=== PATIENT | female | born 1930 | race Caucasian/White ===

== ENCOUNTER → 2016-11-22 | Outpatient (CLI) | payer OTHER, MEDICARE ==
[~2016-11-22] MED LIST: ACETAMINOPHEN-1 EAC1 PO; ALPRAZOLAM 0.0.25 M1 PO; ANASPAZ0.125 MG PO; APAP500 PO; ASA5UEC PO; ASPIRIN81 M2 PO; BEANO1 EACH PO; BINOSTO70 MG PO; CALCIUM 600 +1 EAC1 PO; CELEBREX 200 M200 MG PO; CENTRUM SILVER1 EAC1 PO; CRESTOR10 MG PO; CYCLOBENZAPRINE10 MG PO; DITROPAN XL10 M1 PO; DITROPAN XL15 MG PO; FISH OIL 1,0001 EAC5 PO; HYDROCODON-ACE1 EAC7 PO; KEFLEX500 MG; MIRALAX255 GM PO; PREDNISOLONE 5 M5 M1 PO; TRAMADOL 50 MG50 MG PO; VITAMIN D31000 UNI2 PO; ZESTRIL10 MG PO; [UNRECOGNIZED DRUG - OTHER] PO
== END ==
LOC: RAD 01:15
DX: Z12.31 Encounter for screening mammogram for malignant neoplasm of breast (principal)

== ENCOUNTER → 2017-05-16 | Outpatient (CLI) | payer OTHER, MEDICARE | LOC: HYPER 05-03 10:37 | DX: S81.801A Unspecified open wound, right lower leg, initial encounter (principal); L03.115 Cellulitis of right lower limb; M19.90 Unspecified osteoarthritis, unspecified site; F41.9 Anxiety disorder, unspecified; M81.0 Age-related osteoporosis without current pathological fracture; Z72.89 Other problems related to lifestyle; X58.XXXA Exposure to other specified factors, initial encounter; Y93.89 Activity, other specified; Y92.89 Other specified places as the place of occurrence of the external cause; Y99.8 Other external cause status ==

== ENCOUNTER → 2017-05-28 | Outpatient (CLI) | payer OTHER, MEDICARE | LOC: HYPER 07:02 | DX: S81.801D Unspecified open wound, right lower leg, subsequent encounter (principal); L03.115 Cellulitis of right lower limb; M19.90 Unspecified osteoarthritis, unspecified site; M81.0 Age-related osteoporosis without current pathological fracture; F41.9 Anxiety disorder, unspecified; Z98.49 Cataract extraction status, unspecified eye; Z72.89 Other problems related to lifestyle; X58.XXXD Exposure to other specified factors, subsequent encounter ==

== ENCOUNTER → 2017-06-11 | Outpatient (CLI) | payer OTHER, MEDICARE | LOC: HYPER 06:49 | DX: S81.801D Unspecified open wound, right lower leg, subsequent encounter (principal); M19.90 Unspecified osteoarthritis, unspecified site; M81.0 Age-related osteoporosis without current pathological fracture; F41.9 Anxiety disorder, unspecified; Z98.49 Cataract extraction status, unspecified eye; Z79.82 Long term (current) use of aspirin; Z72.89 Other problems related to lifestyle; X58.XXXD Exposure to other specified factors, subsequent encounter ==

== ENCOUNTER → 2018-04-18 | Outpatient (CLI) | payer OTHER, MEDICARE | LOC: HYPER 07:18 | DX: S81.812A Laceration without foreign body, left lower leg, initial encounter (principal); M19.90 Unspecified osteoarthritis, unspecified site; M81.0 Age-related osteoporosis without current pathological fracture; F41.9 Anxiety disorder, unspecified; Z98.49 Cataract extraction status, unspecified eye; Z79.82 Long term (current) use of aspirin; W22.8XXA Striking against or struck by other objects, initial encounter; Y93.89 Activity, other specified; Y92.89 Other specified places as the place of occurrence of the external cause; Y99.8 Other external cause status ==

== ENCOUNTER → 2018-07-02 | Outpatient (CLI) | payer OTHER, MEDICARE | LOC: HYPER 06-13 10:17 | DX: S81.801A Unspecified open wound, right lower leg, initial encounter (principal); M19.90 Unspecified osteoarthritis, unspecified site; M81.0 Age-related osteoporosis without current pathological fracture; F41.9 Anxiety disorder, unspecified; W22.8XXA Striking against or struck by other objects, initial encounter; Y93.89 Activity, other specified; Y92.513 Shop (commercial) as the place of occurrence of the external cause; Y99.8 Other external cause status ==

== ENCOUNTER → 2018-10-08 | Outpatient (CLI) | payer OTHER, MEDICARE | LOC: HYPER 06:58 | DX: L97.822 Non-pressure chronic ulcer of other part of left lower leg with fat layer exposed (principal); R54 Age-related physical debility; R60.0 Localized edema; M19.90 Unspecified osteoarthritis, unspecified site; M81.0 Age-related osteoporosis without current pathological fracture; F41.9 Anxiety disorder, unspecified ==

== ENCOUNTER → 2018-11-05 | Outpatient (CLI) | payer OTHER, MEDICARE | LOC: HYPER 06:40 | DX: L97.811 Non-pressure chronic ulcer of other part of right lower leg limited to breakdown of skin (principal); M19.90 Unspecified osteoarthritis, unspecified site; M81.0 Age-related osteoporosis without current pathological fracture; R54 Age-related physical debility; R60.0 Localized edema; F41.9 Anxiety disorder, unspecified ==

== ENCOUNTER 2019-07-09 15:51 | Emergency (ER) | payer OTHER, MEDICARE ==
[~2019-07-09] VITALS: Ht 157.5 cm; Wt 52.6 kg
[2019-07-09 17:41] VITALS: BP 163/82
== END 2019-07-09 17:42 | disposition home or self-care (01) ==
LOC: ER 15:51
DX: S43.491A Other sprain of right shoulder joint, initial encounter (principal); G89.29 Other chronic pain; Z96.651 Presence of right artificial knee joint; Z88.1 Allergy status to other antibiotic agents; Z88.8 Allergy status to other drugs, medicaments and biological substances; W10.8XXA Fall (on) (from) other stairs and steps, initial encounter; Y93.89 Activity, other specified; Y92.89 Other specified places as the place of occurrence of the external cause; Y99.8 Other external cause status

== ENCOUNTER → 2019-07-31 | Outpatient (CLI) | payer OTHER, MEDICARE | LOC: HYPER 08:33 | DX: S81.811A Laceration without foreign body, right lower leg, initial encounter (principal); S81.812A Laceration without foreign body, left lower leg, initial encounter; L03.115 Cellulitis of right lower limb; R54 Age-related physical debility; M25.511 Pain in right shoulder; M25.512 Pain in left shoulder; M19.90 Unspecified osteoarthritis, unspecified site; M25.571 Pain in right ankle and joints of right foot; M81.0 Age-related osteoporosis without current pathological fracture; F41.9 Anxiety disorder, unspecified; Z79.82 Long term (current) use of aspirin; Z98.49 Cataract extraction status, unspecified eye; Z79.52 Long term (current) use of systemic steroids; X58.XXXA Exposure to other specified factors, initial encounter; Y93.89 Activity, other specified; Y92.89 Other specified places as the place of occurrence of the external cause; Y99.8 Other external cause status ==

== ENCOUNTER → 2019-08-07 | Outpatient (CLI) | payer OTHER, MEDICARE | LOC: HYPER 09:01 | DX: L97.811 Non-pressure chronic ulcer of other part of right lower leg limited to breakdown of skin (principal); S81.811D Laceration without foreign body, right lower leg, subsequent encounter; S81.812D Laceration without foreign body, left lower leg, subsequent encounter; L03.115 Cellulitis of right lower limb; R60.0 Localized edema; M25.511 Pain in right shoulder; M25.512 Pain in left shoulder; M25.571 Pain in right ankle and joints of right foot; M19.90 Unspecified osteoarthritis, unspecified site; M81.0 Age-related osteoporosis without current pathological fracture; F41.9 Anxiety disorder, unspecified; Z79.82 Long term (current) use of aspirin; Z79.52 Long term (current) use of systemic steroids; W22.8XXD Striking against or struck by other objects, subsequent encounter ==

== ENCOUNTER → 2019-08-21 | Outpatient (CLI) | payer OTHER, MEDICARE | LOC: HYPER 13:43 | DX: L97.811 Non-pressure chronic ulcer of other part of right lower leg limited to breakdown of skin (principal); S81.811D Laceration without foreign body, right lower leg, subsequent encounter; S81.812D Laceration without foreign body, left lower leg, subsequent encounter; L03.115 Cellulitis of right lower limb; R60.0 Localized edema; M25.511 Pain in right shoulder; M25.512 Pain in left shoulder; M25.571 Pain in right ankle and joints of right foot; M19.90 Unspecified osteoarthritis, unspecified site; M81.0 Age-related osteoporosis without current pathological fracture; F41.9 Anxiety disorder, unspecified; Z79.82 Long term (current) use of aspirin; Z79.52 Long term (current) use of systemic steroids; W22.8XXD Striking against or struck by other objects, subsequent encounter ==

== ENCOUNTER → 2019-09-04 | Outpatient (CLI) | payer OTHER, MEDICARE | LOC: HYPER 13:25 | DX: L97.811 Non-pressure chronic ulcer of other part of right lower leg limited to breakdown of skin (principal); S81.811D Laceration without foreign body, right lower leg, subsequent encounter; S81.812D Laceration without foreign body, left lower leg, subsequent encounter; L03.115 Cellulitis of right lower limb; R60.0 Localized edema; M25.511 Pain in right shoulder; M25.512 Pain in left shoulder; M25.571 Pain in right ankle and joints of right foot; M19.90 Unspecified osteoarthritis, unspecified site; M81.0 Age-related osteoporosis without current pathological fracture; F41.9 Anxiety disorder, unspecified; Z79.82 Long term (current) use of aspirin; Z79.52 Long term (current) use of systemic steroids; W22.8XXD Striking against or struck by other objects, subsequent encounter ==

== ENCOUNTER → 2019-09-18 | Outpatient (CLI) | payer OTHER, MEDICARE | LOC: HYPER 10:53 | DX: S81.812D Laceration without foreign body, left lower leg, subsequent encounter (principal); S81.811D Laceration without foreign body, right lower leg, subsequent encounter; L97.811 Non-pressure chronic ulcer of other part of right lower leg limited to breakdown of skin; L03.115 Cellulitis of right lower limb; R60.0 Localized edema; M25.511 Pain in right shoulder; M25.512 Pain in left shoulder; M25.571 Pain in right ankle and joints of right foot; M19.90 Unspecified osteoarthritis, unspecified site; M81.0 Age-related osteoporosis without current pathological fracture; F41.9 Anxiety disorder, unspecified; Z79.82 Long term (current) use of aspirin; Z79.52 Long term (current) use of systemic steroids; W22.8XXD Striking against or struck by other objects, subsequent encounter ==

== ENCOUNTER 2019-11-13 18:04 | Emergency (ER) | payer OTHER, MEDICARE ==
[~2019-11-13] VITALS: Ht 165.1 cm; Wt 54.0 kg
[2019-11-13 19:45] LABS: ABSOLUTE NEUTROPHILS 8.4 thou/uL (1.4-8.2); BASOPHILS 0.5 % (0.0-2.0); EOSINOPHILS 0.1 % (0.0-3.0); HEMATOCRIT 37.9 % (37.0-47.0); HEMOGLOBIN 12.5 gm/dL (12.0-15.0); LYMPHOCYTES 20.4 % (24.0-44.0); MCH 30.9 pg (26.0-34.0); MCHC 33.1 g/dL (28.0-37.0); MCV 93.4 fL (80.0-100.0); MONOCYTES 7.7 % (1.0-8.0); PLATELET COUNT 164 thou/uL (150-400); POLYS 71.3 % (36.0-66.0); RBC 4.06 mil/uL (4.20-5.00); WBC 11.8 thou/uL (4.0-11.0)
[2019-11-13 19:52] LABS: CALCIUM 8.8 mg/dL (8.5-10.1); CREATININE 0.8 mg/dL (0.6-1.0); POTASSIUM 3.9 mmol/L (3.5-5.1)
[2019-11-13 20:00] LABS: ALBUMIN 2.7 g/dL (3.4-5.0); TOTAL BILIRUBIN 0.7 mg/dL (0.2-1.0); TOTAL PROTEIN 6.1 g/dL (6.4-8.2)
[2019-11-13] MEDS ORDERED: ELIQUIS5 M1 PO (20:16)
[2019-11-13 20:52] VITALS: BP 124/76
== END 2019-11-13 20:52 | disposition home or self-care (01) ==
LOC: ER 18:04
PROVIDERS: Emergency Medicine
DX: I82.402 Acute embolism and thrombosis of unspecified deep veins of left lower extremity (principal); Z86.718 Personal history of other venous thrombosis and embolism; Z96.651 Presence of right artificial knee joint; Z79.899 Other long term (current) drug therapy; Z79.82 Long term (current) use of aspirin; Z88.8 Allergy status to other drugs, medicaments and biological substances; Z88.1 Allergy status to other antibiotic agents; Z88.2 Allergy status to sulfonamides

== ENCOUNTER → 2019-12-01 | Outpatient (CLI) | payer OTHER, MEDICARE ==
[~2019-12-01] MED LIST changes: +ELIQUIS5 M1 PO
== END ==
LOC: HYPER 15:04
PROVIDERS: ATTEND Emergency Medicine
DX: L97.822 Non-pressure chronic ulcer of other part of left lower leg with fat layer exposed (principal); S80.822A Blister (nonthermal), left lower leg, initial encounter; I82.502 Chronic embolism and thrombosis of unspecified deep veins of left lower extremity; R54 Age-related physical debility; M19.90 Unspecified osteoarthritis, unspecified site; M81.0 Age-related osteoporosis without current pathological fracture; F41.9 Anxiety disorder, unspecified; Z79.82 Long term (current) use of aspirin; Z79.01 Long term (current) use of anticoagulants; Z79.52 Long term (current) use of systemic steroids; Z98.49 Cataract extraction status, unspecified eye; X58.XXXA Exposure to other specified factors, initial encounter; Y93.89 Activity, other specified; Y92.89 Other specified places as the place of occurrence of the external cause; Y99.8 Other external cause status

== ENCOUNTER → 2019-12-09 | Outpatient (CLI) | payer OTHER, MEDICARE | LOC: HYPER 15:45 | PROVIDERS: ATTEND Emergency Medicine | DX: L97.822 Non-pressure chronic ulcer of other part of left lower leg with fat layer exposed (principal); S80.822D Blister (nonthermal), left lower leg, subsequent encounter; I87.2 Venous insufficiency (chronic) (peripheral); I73.89 Other specified peripheral vascular diseases; R54 Age-related physical debility; I82.502 Chronic embolism and thrombosis of unspecified deep veins of left lower extremity; R60.0 Localized edema; M19.90 Unspecified osteoarthritis, unspecified site; M81.0 Age-related osteoporosis without current pathological fracture; F41.9 Anxiety disorder, unspecified; Z79.82 Long term (current) use of aspirin; Z79.52 Long term (current) use of systemic steroids; Z79.01 Long term (current) use of anticoagulants; X58.XXXD Exposure to other specified factors, subsequent encounter ==

== ENCOUNTER → 2019-12-23 | Outpatient (CLI) | payer OTHER, MEDICARE | LOC: HYPER 13:22 | PROVIDERS: ATTEND Emergency Medicine | DX: L97.822 Non-pressure chronic ulcer of other part of left lower leg with fat layer exposed (principal); S80.822D Blister (nonthermal), left lower leg, subsequent encounter; I82.502 Chronic embolism and thrombosis of unspecified deep veins of left lower extremity; R60.0 Localized edema; I73.89 Other specified peripheral vascular diseases; I87.2 Venous insufficiency (chronic) (peripheral); M19.90 Unspecified osteoarthritis, unspecified site; M81.0 Age-related osteoporosis without current pathological fracture; F41.9 Anxiety disorder, unspecified; Z79.82 Long term (current) use of aspirin; Z79.52 Long term (current) use of systemic steroids; X58.XXXD Exposure to other specified factors, subsequent encounter ==

== ENCOUNTER → 2020-01-21 | Outpatient (CLI) | payer OTHER, MEDICARE | LOC: HYPER 08:17 | PROVIDERS: ATTEND Emergency Medicine | DX: L97.822 Non-pressure chronic ulcer of other part of left lower leg with fat layer exposed (principal); I82.502 Chronic embolism and thrombosis of unspecified deep veins of left lower extremity; I87.2 Venous insufficiency (chronic) (peripheral); I73.89 Other specified peripheral vascular diseases; R54 Age-related physical debility; R60.0 Localized edema; M19.90 Unspecified osteoarthritis, unspecified site; M81.0 Age-related osteoporosis without current pathological fracture; F41.9 Anxiety disorder, unspecified; Z79.82 Long term (current) use of aspirin; Z79.52 Long term (current) use of systemic steroids ==

== ENCOUNTER → 2020-02-18 | Outpatient (CLI) | payer OTHER, MEDICARE | LOC: HYPER 13:19 | PROVIDERS: ATTEND Emergency Medicine | DX: I70.245 Atherosclerosis of native arteries of left leg with ulceration of other part of foot (principal); L97.522 Non-pressure chronic ulcer of other part of left foot with fat layer exposed; L97.822 Non-pressure chronic ulcer of other part of left lower leg with fat layer exposed; S51.012A Laceration without foreign body of left elbow, initial encounter; S51.011A Laceration without foreign body of right elbow, initial encounter; I82.502 Chronic embolism and thrombosis of unspecified deep veins of left lower extremity; I87.2 Venous insufficiency (chronic) (peripheral); I73.89 Other specified peripheral vascular diseases; R60.0 Localized edema; M19.90 Unspecified osteoarthritis, unspecified site; M81.0 Age-related osteoporosis without current pathological fracture; F41.9 Anxiety disorder, unspecified; Z79.52 Long term (current) use of systemic steroids; Z79.82 Long term (current) use of aspirin; X58.XXXA Exposure to other specified factors, initial encounter; Y93.89 Activity, other specified; Y92.89 Other specified places as the place of occurrence of the external cause; Y99.8 Other external cause status ==

== ENCOUNTER 2020-03-30 10:10 | Inpatient (IN) | payer OTHER, MEDICARE ==
[~2020-03-30] VITALS: Ht 157.5 cm; Wt 50.8 kg
[2020-03-30 10:29] VITALS: BP 180/103
[2020-03-30 10:42] LABS: HEMATOCRIT 46.1 % (37.0-47.0); HEMOGLOBIN 15.4 gm/dL (12.0-15.0); MCH 30.9 pg (26.0-34.0); MCHC 33.3 g/dL (28.0-37.0); MCV 92.7 fL (80.0-100.0); RBC 4.98 mil/uL (4.20-5.00); RDW 16.1 % (10.5-14.5); URINE BILIRUBIN NEGATIVE (Negative); URINE BLOOD NEGATIVE (Negative); URINE CLARITY CLEAR; URINE COLOR YELLOW; URINE GLUCOSE-RANDOM* NEGATIVE (Negative); URINE KETONES NEGATIVE (Negative); URINE LEUKOCYTES-REFLEX NEGATIVE (Negative); URINE NITRITE-REFLEX NEGATIVE (Negative); URINE PROTEIN (DIPSTICK) TRACE (Negative); URINE UROBILINOGEN 0.2 E.U./dl (0.2-1.0); WBC 18.4 thou/uL (4.0-11.0)
[2020-03-30 11:05] LABS: ABSOLUTE NEUTROPHILS 14.2 thou/uL (1.4-8.2); NUCLEATED RBCS 1 /100WBC; PLATELET COUNT 273 thou/uL (150-400)
[2020-03-30 11:06] LABS: PLATELET ESTIMATE NORMAL
--- NOTE | 2020-03-30 12:27 | EKG ---
[facility] [place] [address] ELECTROCARDIOGRAM REPORT Name: EZEKIEL MINOR Room #: [facility]#: [id number] Admission: 03/30/20 Attend Phys: Discharge: Date of : 32 Report #: [id number] THIS REPORT FOR: cc: Kaz Flanagan MD, David A. MD Santiago, Patrick MD [facility] ~ THIS REPORT FOR: //name// [facility] ED Test Date: 2020-03-30 Test Time: 10:25:38 Pat Name: EZEKIEL MINOR Department: Room: Gender: F Custodial Operations Manager: [facility] : 1930 Requested By: Neol Crisostomo Order Number: [id number] MD: Emir Ayala Measurements Intervals [place] Rate: 145 P: HI: QRS: 258 QRSD: 147 T: 214 QT: 327 QTc: 508 Interpretive Statements Sinus tach, possibly brief ATRIAL FIBRILLATION, three beats rate ~160 BPM Artifact in lead(s) II,aVR,aVF,V1,V2,V3,V4,V5,V6 No previous ECG available for comparison Electronically Signed On 03-30-2020 12:27:54 LINKER UP by Emir Ayala [email or web address] <ELECTRONICALLY SIGNED> By: Emir Ayala MD, FACC 03/30/20 1227 1025 1025 Emir Ayala MD, [facility] /EPI
[2020-03-30 13:13] LABS: CALCIUM 8.8 mg/dL (8.5-10.1); CREATININE 0.8 mg/dL (0.6-1.0); POTASSIUM 3.3 mmol/L (3.5-5.1)
[2020-03-30 13:22] LABS: TROPONIN-I 0.16 ng/mL (<0.06)
--- NOTE | 2020-03-30 14:49 | NUR ---
SPOKE WITH CERTIFIED PARALEGAL REGARDING ALLEGED "NEEDLE STUCK IN PT.'S BACK" WHEN CT WAS PERFORMED. SHE ADMITTED THE 'NEEDLE' WAS A SHIELDED STYLUS THAT HAD NOT BROKEN SKIN BUT LOOKED "BENT." NO BLOOD PRESENT. STATES THE STYLUS WAS JUST "IN HER BED UNDERNEATH ONE SIDE OF PT." INFORMED CHARGE NURSE NAY CAR.
--- NOTE | 2020-03-30 15:29 | EKG ---
[facility] [place] [address] ELECTROCARDIOGRAM REPORT Name: EZEKIEL MINOR Room #: 170-8 ADM IN M.R.#: [id number] Admission: 03/30/20 Attend Phys: Shad Lawrence MD Discharge: Date of : 32 Report #: [id number] THIS REPORT FOR: cc: Kaz Flanagan MD, David A. MD Santiago,Emir ROGERS [facility] ~ THIS REPORT FOR: //name// [facility] ED Test Date: 2020-03-30 Test Time: 11:59:17 Pat Name: EZEKIEL MINOR Department: Room: 170 Gender: F Small Piece Cutter: [facility] : 1930 Requested By: Noel Crisostomo Order Number: [id number] : Emir Ayala Measurements Intervals [place] Rate: 128 P: 74 MS: 156 QRS: 73 QRSD: 94 T: 252 QT: 301 QTc: 440 Interpretive Statements Artifact, suspect AFIB Borderline low voltage, extremity leads LVH with secondary repolarization abnormality Artifact in lead(s) I,II,III,aVR,aVL,aVF Compared to ECG 03/30/2020 10:25:38 Left ventricular hypertrophy now present Early repolarization now present Sinus tachycardia no longer present Electronically Signed On 03-30-2020 15:29:09 BOARD CERTIFIED ARTS THERAPIST by Emir Ayala [email or web address] <ELECTRONICALLY SIGNED> By: Emir Ayala MD, [facility] 03/30/20 1529 1159 1159 Emir Ayala MD, [facility] /EPI
--- NOTE | 2020-03-30 21:56 | NUR ---
tw primary lacy ecological economist. cannot take bp due to pt pain increasing, requesting to stop taking bp. per lacy, ok to not take bp.
--- NOTE | 2020-03-31 08:38 | NUR ---
YESSENIA SOMERS, DAUGHTER: [phone]
[2020-03-31] MEDS ORDERED: HALOPERIDOL2 MG/1 ML PO (10:15)
[2020-03-31] MEDS ORDERED: MSL20MG/ML SUBLING (10:15)
[2020-03-31] MEDS ORDERED: LORAZEPAM I2 MG/1 ML PO (10:15)
--- NOTE | 2020-03-31 11:44 | NUR ---
Spoke with daughter and only ask for a hospice was one that could accommodate their Sabianist ronnie. Contacted Hospice who has no availability till Sunday. Did reach [facility] who confirmed they did indeed have a certified [facility] Hospice service. Called intake at [facility] at [phone] and faxed referral information ( ) and also gave daughter's contact of Myriam Dougherty [phone]. [facility] is on the phone with daughter now, they will come to ED to complete an on-site and plan to accept today with patient discharging home on [facility] from the ED. Notify patients ED nurse and Dr. Lawrence of above.
--- NOTE | 2020-03-31 14:44 | NUR ---
Spoke with Alda associate financial representative Katie at [phone] and confirmed that [facility] ([phone]) now has a confirmed grain picker time on 04-01 at the hospital between 10-10:30 from [facility], wheelchair without 02. Confirmed with [facility] patient height of 5 feet tall and 105 pounds for correct size of wheelchair needed. Note: Specific room being determined at this time with Day Habilitation Supervisor. Katie stated all DME including, walker, bedside commode, hospital bed and oxygen concentrator (although not on at this time ordered preemptively during a holiday to have for family in the home) will be delivered to the patient home later in the afternoon of the for arrival to discharge home on the between 10:30 -11:00. Alda confirmed that a nurse will be at the home by noon on the to complete the admission process for the patient to receive Hospice services. Spoke with daughter Myriam Dougherty at [phone] to confirm above. Myriam voiced an understanding of plan. Myriam did ask to continue the [place] care for comfort. Spoke with Dr. Lawrence and confirmed above and states she will not d/c the [place] at discharge. Day Habilitation Supervisor notified of above.
[2020-03-31 16:47] VITALS: BP 146/74
[2020-03-31 17:25] VITALS: BP 146/74
--- NOTE | 2020-03-31 18:27 | NUR ---
89 YEAR OLD FEMALE ARRIVES TO FLOOR VIA CART AT 1800-DAUGHTER PELON SOMERS ACCOMNIED PT TO UNIT AND STATES PLANS TO BRING PATIENT TO HER HOME TOMMORROW. DAUGHTER WOULD HAVE TAKEN HER HOME WITH HOSPICE TONIGHT BUT WAITING ON HOSPITAL BED TO BE DELIVERED. PT DAUGHTER REQUESTING NO BLOOD PRESSURES,NO POSITION CHANGES UNLESS PT HAS A BM. DAUGHTER YESSENIA STATES "HER SKIN IS SO FRAGILE THAT IT CAUSES HER GREAT PAIN-I ONLY WANT HER TOUCHED IF ABSOLUTLEY NECCESSARY" PT POSITIONED FOR COMFORT. PROVIDED WATER AND ICE CREAM-EXTRA BLANKETS PROVIDED AND ROOM DARKENED-PT DENIES CO CURRENT PAIN. APPEARS TO BE RESTING WITH EYES CLOSED. SALINE LOCK IN UPPER RIGHT ARM
--- NOTE | 2020-03-31 20:52 | NUR ---
Pt's daughter requesting that no vital signs to be done for patient, Dr Lawrence informed and aware. Primary day RN Lulu informed and Night RN informed as well. Patient with discharge orders, instructions on CM's notes and pt's daughter's requests relayed to Night RN as well.
--- NOTE | 2020-04-01 07:16 | NUR ---
ASSUMED PT CARE AROUND 193. AXOX1. VITAL SIGNS NOT TAKEN PER DPOA REQUEST AND DPOA ALSO REQUESTED PT NOT TO BE TURNED. PT'S POSITION ADJUSTED FOR COMFORT AND MEDICATED WITH PAIN MEDS PRIOR PER FAMILY REQUEST. NO S/S ACUTE DISTRESS NOTED OR REPORTED AT THIS TIME. CARE TRANSFERRED TO AM RN AT THIS TIME.
[2020-04-01 09:47] VITALS: BP 146/74
[2020-04-01 10:24] VITALS: BP 146/74
--- NOTE | 2020-04-01 14:06 | NUR ---
PT DISCHARGED HOME PER [facility] WITH DAUGHTER...PREMEDICATED FOR PAIN UPON DISCHARGE
== END 2020-04-01 14:00 | disposition hospice, home (50) | DRG 871 ==
LOC: ER 10:10 → EROBS 14:07 → 4W 14:07
PROVIDERS: Emergency Medicine; ADMIT Hospitalist; ATTEND Hospitalist
DX: A41.9 Sepsis, unspecified organism (principal); J18.9 Pneumonia, unspecified organism; I82.401 Acute embolism and thrombosis of unspecified deep veins of right lower extremity; E86.0 Dehydration; I48.91 Unspecified atrial fibrillation; E87.6 Hypokalemia; Z20.828 Contact with and (suspected) exposure to other viral communicable diseases; Z96.651 Presence of right artificial knee joint; Z88.1 Allergy status to other antibiotic agents; Z88.2 Allergy status to sulfonamides; Z88.8 Allergy status to other drugs, medicaments and biological substances; Z79.899 Other long term (current) drug therapy; W18.39XA Other fall on same level, initial encounter; Y93.89 Activity, other specified; Y92.89 Other specified places as the place of occurrence of the external cause; Y99.8 Other external cause status; S81.811A Laceration without foreign body, right lower leg, initial encounter; Z79.82 Long term (current) use of aspirin
CPT/HCPCS: 10040